=== PATIENT | male | born 1945 | race Caucasian/White ===

== ENCOUNTER 2019-11-22 13:21 | Inpatient (IN) | payer MEDICARE ==
[2019-11-22] MEDS ORDERED: Aspirin Chewable 81 MG TAB ONE (13:50)
[2019-11-22] MEDS ORDERED: Nitroglycerin 2% Ointment 1 INCH/1 GM Packet ONE (13:50)
[2019-11-22 13:53] LABS: #Basophils 0.1 thou/uL (0.0-0.2); #Eosinphils 0.1 thou/uL (0.0-0.7); #Lymphocytes 1.9 thou/uL (1.20-3.40); #Monocytes 0.6 thou/uL (0.11-0.59); #Neutrophils 6.1 thou/uL (1.40-6.50); %Basophils 0.8 % (0.0-1.0); %Eosinophils 0.8 % (0.0-10.0); %Lymphocytes 21.4 % (21.0-51.0); %Monocytes 6.4 % (0.0-10.0); %Neutrophils 70.7 % (42.0-75.0); Mean Corpuscular HGB CONC 32.9 g/dL (32.0-36.0); Mean Corpuscular Hemoglobin 30.7 pg (27.0-31.0); Mean Corpuscular Volume 93.3 fL (78.0-98.0); Mean Platelet Volume 10.2 fL (7.4-10.4); Platelet Count 182 thou/uL (130-400); Red Blood Cell (RBC) Count 5.54 mill/uL (4.70-6.10); White Blood Cell (WBC) Count 8.7 thou/uL (4.8-10.8)
[2019-11-22] MEDS ORDERED: Morphine 4 MG/ML VIAL ONE (14:07)
[2019-11-22] MEDS ORDERED: Ondansetron PF 4 MG/2 ML Vial ONE (14:08)
[2019-11-22 14:17] LABS: ALT (SGPT) 44 U/L (8-55); AST (SGOT) 30 U/L (5-34); Albumin 4.7 g/dL (3.4-4.8); Alkaline Phosphatase 195 U/L (40-110); Anion Gap 13 mmol/L (10-20); BUN (Urea Nitrogen) 9 mg/dL (8.4-25.7); Bilirubin, Total 0.5 mg/dL (0.2-1.2); Calc. Creatinine Clearance 0 mL/min (70-130); Calcium 9.1 mg/dL (7.8-10.44); Carbon Dioxide 27 mmol/L (23-31); Chloride 103 mmol/L (98-107); Estimated GFR-MDRD 65; Globulin 2.9 g/dL (2.4-3.5); Glucose 196 mg/dL (83-110); Potassium 3.8 mmol/L (3.5-5.1); Protein, Total 7.6 g/dL (5.8-8.1); Sodium 139 mmol/L (136-145)
--- NOTE | 2019-11-22 14:21 | RAD ---
EXAM: Single view of the chest HISTORY: Chest pain for one hour COMPARISON: None FINDINGS: Single view of the chest shows a normal sized cardiomediastinal silhouette. There is no deshawn dence of consolidation, mass, or pleural effusion. The bones are unremarkable. IMPRESSION: No evidence of acute cardiopulmonary disease
[2019-11-22 18:08] LABS: Troponin I 1.836 ng/mL (< 0.028)
[2019-11-22] MEDS ORDERED: Ondansetron PF 4 MG/2 ML Vial IVP PRN ×2 (20:25→20:32)
[2019-11-22] MEDS ORDERED: Ondansetron ODT 4 MG TAB PO PRN (20:25)
[2019-11-22] MEDS ORDERED: Acetaminophen 325 MG TAB PO PRN ×2 (20:25→20:32)
[2019-11-22] MEDS ORDERED: Acetaminophen 650 MG Suppository PR PRN (20:25)
[2019-11-22] MEDS ORDERED: Sodium Chloride 0.9% 1,000 ML IV SCH ×2 (20:32→23:00)
[2019-11-22] MEDS ORDERED: Ondansetron ODT 4 MG TAB SL PRN (20:32)
[2019-11-22] MEDS ORDERED: HYDROcodone/Acetaminophen 5/325 mg Tablet PO PRN ×2 (20:32)
[2019-11-22] MEDS ORDERED: Nitroglycerin 0.4 MG TAB (25 Tab Bottle) SL PRN (20:33)
[2019-11-22] MEDS ORDERED: Aspirin Chewable 81 MG TAB PO SCH (21:00)
[2019-11-22 21:02] LABS: Troponin I 7.744 ng/mL (< 0.028)
[2019-11-22 21:12] VITALS: BMI 34.2
[2019-11-22] MEDS: Enoxaparin Sodium 120 MG/0.8 ML SYRINGE SC SCH (21:43)
[2019-11-22] MEDS: Famotidine/PF 20 mg/2ml Vial SLOW IVP SCH (21:43)
--- NOTE | 2019-11-23 03:21 | HP ---
TIME OF ASSESSMENT: 1899 CHIEF COMPLAINT: Chest pain. HISTORY OF PRESENT ILLNESS: Mr. Perez is a pleasant 74-year-old gentleman who has a known history of coronary artery disease, hypertension, and previous TN requiring stents in the past, who presents with complaints of severe chest pain which he rates 8/10 in severity. The patient states the pain came on suddenly and remained constant for an hour and relieved with medications given in the emergency department including morphine and Nitro-Bid. The patient states he took 5 tablets of baby aspirin at home before coming. On arrival to the emergency department, he had an EKG done, which demonstrated normal sinus rhythm with premature supraventricular complexes and PVCs or fusion complexes. He had laboratory studies done with initial troponin negative. Second troponin, however, elevated at 1.836. According to the patient, he has had no further episodes of chest pain. He feels well at this time. He does state that the pain he experienced earlier today was very similar to what he experienced with his TN in 2017 at which time he had gotten 3 stents. In recent days, he reports feeling without any complaints. Denies any type of exertional chest pain. The patient does admit to running out of his antihypertensives since 3 days ago. He denies having any shortness of breath. No cough or hemoptysis. No fevers, chills, or sweats. All other review of systems are negative. PAST MEDICAL HISTORY: 1. Coronary artery disease. 2. Hypertension. 3. History of TN. 4. Hypothyroidism. 5. Obesity. PAST SURGICAL HISTORY: Cardiac stents x3 in 2017. SOCIAL HISTORY: The patient denies any tobacco use, alcohol consumption, or illicit drug use. ALLERGIES: NO KNOWN DRUG ALLERGIES. CURRENT MEDICATIONS: 1. Levothyroxine. 2. Aspirin. 3. Amlodipine. 4. Lisinopril. 5. Bystolic. PHYSICAL EXAMINATION: GENERAL: The patient appears well developed, well nourished, is in no acute distress. VITAL SIGNS: Temperature 98.9, pulse 74, blood pressure 113/72, respirations 18, and O2 saturation 98% on room air. HEENT: Normocephalic and atraumatic. Pupils are equal, round, reactive to light. Sclerae icterus. Oropharynx is clear. NECK: Supple. No lymphadenopathy. LUNGS: Clear to auscultation bilaterally without wheezes, rales, or rhonchi. CARDIAC: Regular rate and rhythm. ABDOMEN: Soft, nontender, nondistended with bowel sounds present. No guarding or rigidity. No renal angle tenderness. EXTREMITIES: No lower leg swelling or edema. NEUROLOGIC: Alert, alert, and oriented x3. SKIN: Without rash or jaundice. INVESTIGATIONS: As mentioned above in HPI. IMPRESSION AND PLAN: Mr. Perez is a pleasant 74-year-old gentleman with known coronary artery disease and previous myocardial infarction as well as hypertension, who is being admitted for management of the following. 1. Lbx-OD-nktaxuaze myocardial infarction. The patient with severe acute onset chest pain similar to what he experienced with previous myocardial infarction back in 2017 at which time he had stents placed x3. Initial troponin negative. EKG unremarkable. Second troponin elevated at 1.836. A consult was placed to Cardiology and he will be started on Lovenox 1 mg/kg. The patient is pain free at present. We will hold antihypertensives given the fact his blood pressure is on the lower side. The patient will remain on continuous cardiac monitoring. 2. Hypertension. The patient has been off medications for 3 days due to running out. Given blood pressure is on the lower side, we will hold antihypertensives. Continue to monitor blood pressure. 3. Hypothyroidism. We will add TSH with labs. Resume levothyroxine. 4. Gastrointestinal prophylaxis with famotidine. 5. Deep venous thrombosis prophylaxis. Patient on anticoagulation as mentioned above. 6. Code status is full. Surrogate decision maker is Philly Rizvi. The patient's case discussed with the attending who agrees upon the care as described above. Job ID: [id number]
[2019-11-23 04:17] LABS: #Basophils 0.1 thou/uL (0.0-0.2); #Eosinphils 0.2 thou/uL (0.0-0.7); #Lymphocytes 2.7 thou/uL (1.20-3.40); #Monocytes 0.9 thou/uL (0.11-0.59); #Neutrophils 6.6 thou/uL (1.40-6.50); %Basophils 0.7 % (0.0-1.0); %Eosinophils 1.5 % (0.0-10.0); %Lymphocytes 26.2 % (21.0-51.0); %Monocytes 8.2 % (0.0-10.0); %Neutrophils 63.5 % (42.0-75.0); Hemoglobin 14.8 g/dL (14.0-18.0); Mean Corpuscular HGB CONC 33.8 g/dL (32.0-36.0); Mean Corpuscular Volume 94.8 fL (78.0-98.0); Mean Platelet Volume 10.3 fL (7.4-10.4); Platelet Count 172 thou/uL (130-400); Red Blood Cell (RBC) Count 4.64 mill/uL (4.70-6.10); White Blood Cell (WBC) Count 10.4 thou/uL (4.8-10.8)
[2019-11-23 04:43] LABS: Anion Gap 13 mmol/L (10-20); BUN (Urea Nitrogen) 22 mg/dL (8.4-25.7); Calc. Creatinine Clearance 79 mL/min (70-130); Calcium 8.4 mg/dL (7.8-10.44); Carbon Dioxide 24 mmol/L (23-31); Cardiac Risk 7.7 (Less than 4.5); Chloride 104 mmol/L (98-107); Cholesterol 184 mg/dl (< 200 Desired); Estimated GFR-MDRD 55; Glucose 202 mg/dL (83-110); HDL Cholesterol 24 mg/dL (>60 Neg Risk); Potassium 4.3 mmol/L (3.5-5.1); Sodium 137 mmol/L (136-145); Triglycerides 417 mg/dL (Less than 150)
[2019-11-23] MEDS ORDERED: Levothyroxine 175 MCG TAB PO SCH (06:00)
[2019-11-23 07:49] VITALS: BP 137/78; TEMP 98.4
[2019-11-23] MEDS: Famotidine/PF 20 mg/2ml Vial SLOW IVP SCH (07:50)
[2019-11-23 08:39] LABS: Troponin I 9.611 ng/mL (< 0.028)
[2019-11-23] MEDS ORDERED: Amlodipine 10 MG TAB PO SCH (09:00)
[2019-11-23] MEDS ORDERED: Aspirin 81 mg Enteric Coated Tablet PO SCH (09:00)
[2019-11-23] MEDS ORDERED: Nebivolol HCl 5 MG TAB PO SCH (09:45)
[2019-11-23] MEDS ORDERED: Atorvastatin Calcium 40 MG TAB PO SCH ×2 (09:52→21:00)
[2019-11-23] MEDS ORDERED: Ubidecarenone 50 MG CAP PO SCH (09:52)
[2019-11-23] MEDS: Enoxaparin Sodium 120 MG/0.8 ML SYRINGE SC SCH (09:59)
--- NOTE | 2019-11-23 14:33 | CON ---
DATE OF CONSULTATION: HISTORY OF PRESENT ILLNESS: The patient is a pleasant 74-year-old gentleman with a history of coronary artery disease who presents with chest pain. The patient states a few years ago, he had a myocardial infarction. He underwent PTCA and stent placement into several coronary vessels. He is followed by a wine cellar worker in [place]. The patient states he has been doing well. He has been completely free of chest discomfort until a few days ago. He ran out of his medications and stopped taking his aspirin. The patient presented to emergency room with several hours of substernal chest discomfort. The patient states he has had no further chest discomfort. The patient has multiple cardiac risk factors for coronary artery disease including continued tobacco abuse. PAST MEDICAL HISTORY: 1. Coronary artery disease. 2. Hypertension. 3. Myocardial infarction. 4. Thyroid disorder. 5. Dyslipidemia. PAST SURGICAL HISTORY: Neck surgery. SOCIAL HISTORY: Nonsmoker. MEDICATIONS: 1. Lisinopril 40 daily. 2. Aspirin 81 daily. 3. Bystolic 20 daily. 4. Synthroid 175 mcg daily. 5. Norvasc 10 daily. FAMILY HISTORY: Positive family history of coronary artery disease. Father had CAD. ALLERGIES: NO KNOWN DRUG ALLERGIES. REVIEW OF SYSTEMS: Ten-point system otherwise unremarkable. No history of easy bruising or bleeding. PHYSICAL EXAMINATION: GENERAL: Obese gentleman, in no acute distress. VITAL SIGNS: Blood pressure was 137/78. NECK: Showed no jugular venous distention. No carotid bruits. LUNGS: Clear to auscultation. HEART: Regular rate and rhythm. Normal S1 and S2. No murmurs. ABDOMEN: Nondistended. EXTREMITIES: Showed no edema. VASCULAR: Radial pulses are 2+. Right femoral pulse is diminished. LABORATORY DATA: Sodium 137, potassium 4.3, chloride 104, bicarbonate 24, BUN 22, and creatinine 1.28. Troponin was 9.6. His white blood cell count is 10.4, hemoglobin 14.8, hematocrit 43.9, and platelets 172. His EKG revealed normal sinus rhythm with Q-waves suggestive of an inferior infarct. No acute ST-T wave changes. IMPRESSION AND PLAN: 1. Non-Q-wave myocardial infarction. 2. History of percutaneous transluminal coronary angioplasty and stent placement. 3. Hypertension. 4. Dyslipidemia. 5. Tobacco abuse. 6. Obesity. This gentleman presents with a non-Q-wave myocardial infarction. I have recommended proceeding with cardiac catheterization to evaluate whether he has developed progressive coronary artery disease. The patient is hesitant to proceed. He states he would prefer to undergo an evaluation by his primary wine cellar worker. The patient will be treated with aspirin and Lovenox. We will start the patient on low- dose beta-armani. The patient has been intolerant to statin therapy. We will give the patient a dose of Lipitor and add CoQ10. We will follow this patient with you through his hospitalization. Job ID: [id number] [facility]
--- NOTE | 2019-11-23 16:53 | DIS ---
DATE OF ADMISSION: 11/22/2019 DATE OF DISCHARGE: 11/23/2019 MEDICAL AFFAIRS SPECIALIST: Dr. Alli Zaman, Cardiology Service. FINAL DIAGNOSES AT THE TIME OF DISCHARGE: 1. Non-Q-wave myocardial infarction, which is also called type 2 myocardial infarction. 2. History of percutaneous transluminal coronary angioplasty and stent placement. 3. Hypertension. 4. Dyslipidemia. 5. Tobacco abuse. 6. Obesity. 7. History of myocardial infarction and coronary artery disease. 8. Hypothyroidism. HOSPITAL COURSE: The patient is a 74-year-old man, who has known history of coronary artery disease, hypertension, and previous [place] requiring stents in the past, who presented with complaints of severe chest pain. He rated at 8 on a scale from 1 to 10 in severity, which started suddenly and remained constant for an hour and relieved with medications given in the emergency department including morphine and Nitro-Bid. Apparently, he took 5 tablets of baby aspirin at home before coming to the emergency room. Electrocardiogram done in the emergency room demonstrated normal sinus rhythm with premature supraventricular complexes and PVCs or fusion complexes. His first troponin was negative. Second troponin however was elevated at 1.836. He denied more chest pain. At the time of admission to hospital, he did not have any discomfort. He denied any shortness of breath. No cough. No hemoptysis. No fever. No chills. No sweats. While in the emergency room, his lab work showed normal CBC and normal chemistry except for alkaline phosphatase which was 195 and glucose which was 196. He got admitted to the hospital. His chest x-ray was done during this admission and it did not show any acute cardiopulmonary disease. The patient was started on Lovenox 1 mg/kg subcutaneously every 12 hours. A cardiology consultation was placed and the patient was pain free at the time of hospitalization. Next troponin at 7.744, then 9.611. His third generation TSH came back at 9.1, and glucose was still elevated at 202. The patient was seen by Dr. Zaman for Cardiology evaluation, who recommended to proceed with cardiac catheterization, but the patient was very hesitant to proceed. He said that he would prefer to undergo an evaluation by his primary building cleaning supervisor in [place]. The patient was discharged after he signed the papers against medical advice and he went directly to his building cleaning supervisor's office in [place]. His was supposed to drive him there. We advised him not to do it, but he left the hospital anyway. Job ID: [id number]
[2019-11-23] MEDS ORDERED: Lisinopril 5 MG TAB PO SCH (21:00)
[2019-11-24] MEDS ORDERED: Nebivolol HCl 5 MG TAB PO SCH (09:00)
== END 2019-11-23 10:10 | disposition left against medical advice (07) | DRG 282 ==
LOC: ERS 13:21 → 2SW 17:10 → UNDOADMOB 17:10 → 2NO 20:13
PROVIDERS: ADMIT Emergency Medicine; ATTEND Emergency Medicine
DX: R07.89 Other chest pain (principal); I21.A1 Myocardial infarction type 2; I25.10 Atherosclerotic heart disease of native coronary artery without angina pectoris; E03.9 Hypothyroidism, unspecified; E66.9 Obesity, unspecified; Z68.34 Body mass index [BMI] 34.0-34.9, adult; Z95.5 Presence of coronary angioplasty implant and graft; Z79.82 Long term (current) use of aspirin; E78.5 Hyperlipidemia, unspecified; I49.3 Ventricular premature depolarization
CPT/HCPCS: 36415; 71045; 80048; 80053; 80061; 83690; 84443; 84484; 85025; 93005; 93010; 96374; 96375; J1650; J2270; J2405; S0028